=== PATIENT | male | born 1975 | race Caucasian/White ===

== ENCOUNTER 2016-12-08 22:36 | Emergency (ER) | payer BC ==
[~2016-12-08] VITALS: Ht 177.8 cm; Wt 113.5 kg
[2016-12-08 22:51] VITALS: BP 130/66; PULSE 68; RESP 18; TEMP 98.6
--- NOTE | 2016-12-08 22:56 | PD ---
HPI Chief Complaint: chest pain Time Seen by Provider: 22:46 Travel History International Travel<30 days: No Contact w/Intl Traveler<30days: No History of Present Illness HPI This is a 41-year-old male who presents to the emergency department having had onset of chest discomfort on the left side of his chest that started around 6 PM. He says he was eating at the time when he felt like someone punched him in the chest. It felt like a "knocking" sensation. He denies any associated shortness of breath, nausea, diaphoresis. He says since then he's felt a little bit of soreness in his left chest which seems to of resolved here in the emergency department. He's never had chest pain before. He denies any history of hypertension, diabetes, hyperlipidemia, smoking or cocaine use. Neither his mother nor his father had heart attacks however he says that his mom had a stroke at the age of 40. He is here visiting from [place] and they drove overnight straight to get here. He denies any leg swelling. PFSH Past Medical History Medical History: Denies Significant Hx Social History Alcohol Use: Yes (socially) Tobacco Use: No Substance Use: No Allergies-Medications (Allergen,Severity, Reaction): Coded Allergies: Vancomycin (Verified Allergy, Severe, Hives, 12/08/16) Review of Systems Except as stated in HPI: all other systems reviewed are Neg Physical Exam Narrative GENERAL:Well appearing, no acute distress SKIN: Focused skin assessment warm and dry. HEAD: Atraumatic. Normocephalic. EYES: Pupils equal and round. No injection or drainage. ENT: Moist mucous membranes NECK: Trachea midline. CARDIOVASCULAR: Regular rate and rhythm. No murmur appreciated. RESPIRATORY: Clear to auscultation. Breath sounds equal bilaterally. GASTROINTESTINAL: Abdomen soft, non-tender, nondistended. MUSCULOSKELETAL: No obvious deformities. NEUROLOGICAL: Awake and alert. No obvious cranial nerve deficits. Moving all extremities. PSYCHIATRIC: Appropriate mood and affect; insight and judgment normal. Data Data Last Documented VS Vital Signs Date Time Temp Pulse Resp B/P Pulse Ox O2 Delivery O2 Flow Rate FiO2 12/08/16 23:10 72 16 110/63 97 Room Air 119/60 12/08/16 22:51 98.6 Orders Electrocardiogram (12/08/16 22:53) Complete Blood Count With Diff (12/08/16 22:53) Comprehensive Metabolic Panel (12/08/16 22:53) D-Dimer (12/08/16 22:53) Troponin I (12/08/16 22:53) Chest, Single Ap (12/08/16 22:53) Ecg Monitoring (12/08/16 22:53) Bilateral Bp Monitoring (12/08/16 22:53) Iv Access Insert/Monitor (12/08/16 22:53) Oximetry (12/08/16 22:53) Oxygen Administration (12/08/16 22:53) Sodium Chloride 0.9% Flush (Ns Flush) (12/08/16 23:00) Labs Laboratory Tests Test 12/08/16 22:45 White Blood Count 10.2 TH/MM3 Red Blood Count 5.12 MIL/MM3 Hemoglobin 15.5 GM/DL Hematocrit 44.4 % Mean Corpuscular Volume 86.6 FL Mean Corpuscular Hemoglobin 30.2 PG Mean Corpuscular Hemoglobin 34.8 % Concent Red Cell Distribution Width 12.1 % Platelet Count 269 TH/MM3 Mean Platelet Volume 9.5 FL Neutrophils (%) (Auto) 63.4 % Lymphocytes (%) (Auto) 25.5 % Monocytes (%) (Auto) 6.2 % Eosinophils (%) (Auto) 4.4 % Basophils (%) (Auto) 0.5 % Neutrophils # (Auto) 6.5 TH/MM3 Lymphocytes # (Auto) 2.6 TH/MM3 Monocytes # (Auto) 0.6 TH/MM3 Eosinophils # (Auto) 0.4 TH/MM3 Basophils # (Auto) 0.1 TH/MM3 CBC Comment DIFF FINAL Differential Comment Sodium Level 143 MEQ/L Potassium Level 3.9 MEQ/L Chloride Level 108 MEQ/L Blood Urea Nitrogen 20 MG/DL Creatinine 0.90 MG/DL Estimat Glomerular Filtration 94 ML/MIN Rate Random Glucose 131 MG/DL MDM Medical Decision Making Medical Screen Exam Complete: Yes Emergency Medical Condition: Yes Interpretation(s) Afebrile, no tachycardia, normotensive No leukocytosis EKG: Normal sinus rhythm, no ST changes Chest x-ray: No acute process Differential Diagnosis Acute coronary syndrome, costochondritis, GERD, pericarditis Narrative Course This is a 41-year-old male who has no other medical problems who presents to the emergency department with atypical chest pain that lasted for about half a second earlier this afternoon and has left him with some soreness in his left chest. EKG is nonischemic. Labs were obtained which are pending. I think given the patient's low risk profile if his initial troponin is normal he has a low heart score and it would be reasonable to advise him to follow up as an outpatient with his primary care provider. We can offer him observation but I think it's unlikely that he will stay and I think this is very unlikely to be acute coronary syndrome. Patient did recently travel overnight in a car from [place]. A d-dimer was sent and they'll be followed up by oncoming provider. Eleanor Turner MD Dec 08, 2016 22:56
[2016-12-08] MEDS ORDERED: SODIUM CHLORIDE 0.9% FLUSH 10 ML FLUSH IVF PRN (23:00)
[2016-12-08 23:10] VITALS: BP_SYST 110; BP_SYST 119; BP_DIAS 60; BP_DIAS 63; PULSE 72; RESP 16; O2SAT 97
--- NOTE | 2016-12-08 23:20 | RADRPT ---
EXAM DATE/TIME: 12/08/2016 23:00 [facility] COMPARISON: No previous studies available for comparison. INDICATIONS : Chest pain. MEDICAL HISTORY : None. SURGICAL HISTORY : None. ENCOUNTER: Initial ACUITY: 1 day PAIN SCORE: 3/10 LOCATION: Left chest FINDINGS: A single view of the chest demonstrates the lungs to be symmetrically aerated without evidence of mas s, infiltrate or effusion. The right costophrenic angle is not included in the [id number] of the exam. Incidental note of azygous lobe. The cardiomediastinal contours are unremarkable. Osseous st ructures are intact. CONCLUSION: The lungs are clear. Raúl Granados MD on December 08, 2016 at 23:18 Board Certified Radiologist. This report was verified electronically.
[2016-12-08 23:26] LABS: BLOOD UREA NITROGEN 20 MG/DL (7-18); GLOMERULAR FILTRATION RATE 94 ML/MIN (>89)
[2016-12-08 23:27] LABS: CHLORIDE 108 MEQ/L (98-107); POTASSIUM 3.9 MEQ/L (3.5-5.1); SODIUM (NA) 143 MEQ/L (136-145)
[2016-12-08 23:38] LABS: AUTOMATED NEUTROPHIL # 6.5 TH/MM3 (1.8-7.7); BASOPHIL # 0.1 TH/MM3 (0-0.2); BASOPHIL % 0.5 % (0.0-2.0); EOSINOPHIL # 0.4 TH/MM3 (0-0.4); EOSINOPHIL % 4.4 % (0.0-4.0); HEMATOCRIT 44.4 % (39.0-51.0); HEMO FLAGS DIFF FINAL; LYMPH % 25.5 % (9.0-44.0); LYMPHOCYTE # 2.6 TH/MM3 (1.0-4.8); MEAN CELL VOLUME 86.6 FL (80.0-100.0); MEAN CORPUSCULAR HEMOGLOBIN 30.2 PG (27.0-34.0); MEAN CORPUSCULAR HGB CONC 34.8 % (32.0-36.0); MONO % 6.2 % (0.0-8.0); NEUT % 63.4 % (16.0-70.0); PLATELET COUNT 269 TH/MM3 (150-450); RED BLOOD COUNT 5.12 MIL/MM3 (4.50-5.90); RED CELL DISTRIBUTION WIDTH 12.1 % (11.6-17.2); WHITE BLOOD COUNT 10.2 TH/MM3 (4.0-11.0)
[2016-12-09 00:05] VITALS: BP 118/65; PULSE 75; RESP 18; O2SAT 97
[2016-12-09 00:05] LABS: ALKALINE PHOSPHATASE 88 U/L (45-117); TOTAL BILIRUBIN ADULT 0.4 MG/DL (0.2-1.0)
[2016-12-09 00:09] LABS: ALT (GPT) 64 U/L (12-78); ANION GAP 9 MEQ/L (5-15); AST (GOT) 23 U/L (15-37); BICARBONATE 26.1 MEQ/L (21.0-32.0)
--- NOTE | 2016-12-09 00:18 | PD ---
Physical Exam Time Seen by Provider: 00:[address] Turner left this patient with me to check the lab results and make a disposition. It is now 1217 and the patient wants to go home. Data Data Last Documented VS Vital Signs Date Time Temp Pulse Resp B/P Pulse Ox O2 Delivery O2 Flow Rate FiO2 12/09/16 00:05 75 18 118/65 97 Room Air 12/08/16 22:51 98.6 Orders Electrocardiogram (12/08/16 22:53) Complete Blood Count With Diff (12/08/16 22:53) Comprehensive Metabolic Panel (12/08/16 22:53) D-Dimer (12/08/16 22:53) Troponin I (12/08/16 22:53) Chest, Single Ap (12/08/16 22:53) Ecg Monitoring (12/08/16 22:53) Bilateral Bp Monitoring (12/08/16 22:53) Iv Access Insert/Monitor (12/08/16 22:53) Oximetry (12/08/16 22:53) Oxygen Administration (12/08/16 22:53) Sodium Chloride 0.9% Flush (Ns Flush) (12/08/16 23:00) Labs Laboratory Tests Test 12/08/16 22:45 White Blood Count 10.2 TH/MM3 Red Blood Count 5.12 MIL/MM3 Hemoglobin 15.5 GM/DL Hematocrit 44.4 % Mean Corpuscular Volume 86.6 FL Mean Corpuscular Hemoglobin 30.2 PG Mean Corpuscular Hemoglobin 34.8 % Concent Red Cell Distribution Width 12.1 % Platelet Count 269 TH/MM3 Mean Platelet Volume 9.5 FL Neutrophils (%) (Auto) 63.4 % Lymphocytes (%) (Auto) 25.5 % Monocytes (%) (Auto) 6.2 % Eosinophils (%) (Auto) 4.4 % Basophils (%) (Auto) 0.5 % Neutrophils # (Auto) 6.5 TH/MM3 Lymphocytes # (Auto) 2.6 TH/MM3 Monocytes # (Auto) 0.6 TH/MM3 Eosinophils # (Auto) 0.4 TH/MM3 Basophils # (Auto) 0.1 TH/MM3 CBC Comment DIFF FINAL Differential Comment D-Dimer Quantitative (PE/DVT) 0.36 MG/L FEU Sodium Level 143 MEQ/L Potassium Level 3.9 MEQ/L Chloride Level 108 MEQ/L Carbon Dioxide Level 26.1 MEQ/L Anion Gap 9 MEQ/L Blood Urea Nitrogen 20 MG/DL Creatinine 0.90 MG/DL Estimat Glomerular Filtration 94 ML/MIN Rate Random Glucose 131 MG/DL Calcium Level 8.6 MG/DL Total Bilirubin 0.4 MG/DL Aspartate Amino Transf 23 U/L (AST/SGOT) Alanine Aminotransferase 64 U/L (ALT/SGPT) Alkaline Phosphatase 88 U/L Troponin I LESS THAN 0.02 NG/ML Total Protein 6.9 GM/DL Albumin 3.8 GM/DL [facility] Medical Record Reviewed: Yes Supervised Visit with EDNA: Yes Interpretation(s) The EKG shows no acute change in the d-dimer is normal and the troponin I is normal. Narrative Course It is now 1223 and the patient's pain has resolved and he wants to go home. Impression: Atypical chest pain Plan: The patient should follow-up with his primary care physician when he gets back to [place]. Diagnosis Primary Impression: Atypical chest pain Additional Instruction: Follow-up with her primary care physician when you get back to [place]. If the pain returns, take Motrin 600 mg 3 times daily to develop high anti- inflammatory levels and this usually resolves the pain. Med/Other Pt SpecificInfo: No Change to Meds Disposition: 01 DISCHARGE HOME Condition: Stable Jag Marcus MD Dec 09, 2016 00:18
[2016-12-09 00:33] VITALS: BP 116/66
--- NOTE | 2016-12-10 07:48 | EKG ---
Date Performed: 12/08/2016 Time Performed: 22:43:48 PTAGE: 41 years EKG: Sinus rhythm WITH SINUS ARRHYTHMIA BORDERLINE ECG INTERPRETATION BASED ON A DEFAULT AGE OF 42 YEARS NO PREVIOUS TRACING DOCTOR: Henry Peterson Interpretating Date/Time 12/10/2016 07:44:37
== END 2016-12-09 00:34 | disposition home or self-care (01) ==
LOC: PHED 22:36
DX: R07.89 Other chest pain (principal)
CPT/HCPCS: 71010; 80053; 84484; 85025; 85379; 93005